=== PATIENT | female | born 1960 | race Caucasian/White ===

== ENCOUNTER 2019-08-08 16:51 | Observation (INO) | payer MEDICARE, BC, OTHER ==
[~2019-08-08] VITALS: Ht 160 cm; Wt 55.5 kg
[2019-08-08] MEDS ORDERED: LEVO88TA3 PO (17:21)
[2019-08-08] MEDS ORDERED: CIPR500T3 PO (17:21)
[2019-08-08] MEDS ORDERED: TOPA50TA8 PO (17:21)
[2019-08-08] MEDS ORDERED: ESTR3TA PO (17:21)
[2019-08-08] MEDS ORDERED: PHEN-501 PO (17:21)
[2019-08-08] MEDS ORDERED: RIZA10TA2 PO (17:51)
[2019-08-08] MEDS: NS 1,000 ML IV SCH (17:56)
[2019-08-08] MEDS ORDERED: ALL10TAB29 PO (17:57)
[2019-08-08] MEDS ORDERED: ONDANSETRON 4MG/2ML VIAL (J2405) IV ONE (18:00)
[2019-08-08] MEDS ORDERED: ACETAMINOPHEN TAB 650MG DOSE (2X325MG) PO PRN (22:30)
[2019-08-08] MEDS ORDERED: CETIRIZINE (ZyrTEC) 10 MG TAB PO PRN (22:30)
[2019-08-08] MEDS ORDERED: RIZATRIPTAN BENZOATE 10 MG TAB PO PRN (22:30)
--- NOTE | 2019-08-08 22:51 | HPEPDOC ---
General Date of Admission 08/08/2019 Date of Service: Aug 08, 2019 Attending Physician: PLACIDO HUYNH MD Chief Complaint The patient is a 59-year-old female admitted with a reason for visit of Kidney Stone. Source: Patient Exam Limitations: No limitations Timing/Duration: Week(s) Severity: Moderate Associated Symptoms: Nausea, Vomiting, Other (Back and abdominal pain) History of Present Illness Ms. Miller is a soft spoken pleasant 59 yo woman from [place] with a history of hypothyroidism on synthroid with a recently increased dose and a remote history of a presumed kidney stone approximately 10 years ago for an episode of acute severe back pain with proceeding episode of hematuria with resolution of the pain, who has been battling some abdominal pain and back pain from kidney stones over the last few weeks. She reports having gone to her PCP a few weeks ago with back and abdominal pain with associated nausea and emesis and had an ultrasound that showed a 3cm? stone. Due to scheduling difficulties her PCP ended up facilitating her to be seen by another provider after developing chills and was prescribed ciprofloxacin that she is currently taking. She was then referred to urology and had an appointment for 08/12/2019 but unfortunately over the last few days her pain her gradually worsened and this morning it was severe enough that her took her to [facility]. She describes her pain as having been 10/10 mostly affecting the left flank but at times band around her waist. At [facility], she arrived hemodynamically stable and afebrile and was given morphine 6mg IV x3, as well as supporting antiemetics with some relief. Initial studies at [facility] were notable for a CT A/P with contrast that revealed 6mm stone at the UPJ with mild left hydronephrosis, WBC of 10.36 with 88,% PMNs, Hgb 12.7, platelets 229, Cr 1.31 with otherwise normal electrolytes and LFTs. She had a UA that had 3+ blood and 2+ protein with negative nitrites and 6-10WBCs with a few bacteria however with a few epithelial cells as well. She also had normal CXR, EKG with NSR, negative troponin, lactate of 2 and lipase of 216. She was then transferred to [facility] for urological evaluation. In the [facility] ED, she was given zofran for nausea and is now being admitted to hospitalist with a consult to urology. Home Medications Scheduled Ciprofloxacin HCl (Ciprofloxacin HCl) 500 Mg Tablet, 500 MG PO BID, (Reported) STARTED 7 DAY COURSE ON 08/04 Conjugated Estrogens (Premarin) 0.3 Mg Tablet, 0.3 MG PO DAILY, (Reported) Levothyroxine Sodium (Levothyroxine Sodium) 88 Mcg Tablet, 88 MCG PO DAILY, (Reported) Topiramate (Topamax) 50 Mg Tablet, 50 MG PO TID, (Reported) Scheduled PRN Cetirizine HCl (Cetirizine HCl) 10 Mg Tablet, 10 MG PO DAILY PRN for ALLERGIES, (Reported) Rizatriptan Benzoate (Rizatriptan) 10 Mg Tablet, 10 MG PO DAILY PRN for MIGRAINE, (Reported) MAY REPEAT DOSE IN 2 HOURS IF SYMPTOMS PERSIST Allergies Coded Allergies: Sulfa (Sulfonamide Antibiotics) (Verified Adverse Reaction, Mild, BODY RASH, 08/08/19) amoxicillin (Verified Adverse Reaction, Mild, BODY RASH, 08/08/19) Past Medical History Medical History Hypothyroidism Remote history of presumed passed kidney stones History of herniated disk s/p back surgery History of palpitations - was evaluated by a material analyst who did not find clinical significant ectopy or arrythmia (per patient) Surgical History History of herniated disk s/p back surgery Social History * Smoker: Denies, non-smoker Alcohol: Denies Drugs: denies Recent Travel/Sick Contacts: Denies: Recent travel, Recent sick contacts Psychosocial History: No pertinent psych hx Lives in [place] with her A-FIB/CHADSVASC A-FIB History Current/History of A-Fib/PAF?: No Current PO Anticoag Therapy: No Age/Risk Factor Scoring CHADSVASC: CHADSVASC Response (Comments) Value Age Risk Factor Age < 65 years old 0 Gender Risk Factor Female 1 Hx of CHF No 0 Hx of HTN No 0 Hx of Stroke/TIA/or VTE No 0 Hx of Diabetes No 0 Hx of Vascular Disease No 0 Total 1 Treatment Treatment ordered: NONE Reason Anticoagulant not given: Not indicated/[id number] Review of Systems Constitutional: Denies: Chills, Fever, Night Sweats Eyes: Denies: Pain, Vision change ENT: Denies: Head Aches, Ear Pain, Dysphagia Skin: Denies: Rash, Lesions, Breakdown Pulmonary: Denies: Dyspnea, Cough Cardiovascular: Denies: Chest Pain, Palpitations, Orthopnea, Paroxysmal Noc. Dyspnea, Lt Headedness Gastrointestinal: Reports: Nausea, Vomiting, Abdominal Pain, Constipation, Other Symptoms (back pain L>R) Genitourinary: Denies: Dysuria, Frequency, Incontinence, Hematuria, Retention Hematologic: Denies: Bruising, Bleeding Excessively, Petecchia, Purpura, Enlarged Lymph Nodes Endocrine: Denies: Polydipsia, Polyphagia, Heat Intolerance, Cold Intolerance, Other Endocrine Sx Musculoskeletal: Denies: Neck Pain, Back Pain, Shoulder Pain, Arm Pain, Hand Pain, Leg Pain, Foot Pain, Joint Pain, Muscle Pain, Spasms Neurological: Denies: Weakness, Numbness, Incoordination, Change in speech, Confusion, Seizures Psych: Reports: Mood Normal; Denies: Anxiety, Depression, Memory Issues, Thoughts of Self Harm, Anger, Thoughts of Harming Other Physical Examination General Exam: Positive: Alert, Cooperative, Mild Distress Eye Exam: Positive: PERRLA, Conjunctiva & lids normal, EOMI ENT Exam: Positive: Atraumatic, Mucous membr. moist/pink, Pharynx Normal, Tongue Midline, Pharyngeal Edema, Nares Patent, Tympanic Membranes Normal, Ext Auditory Canal Nml, Pinna Normal, Other ENT Neck Exam: Positive: Supple, +2 carotid pulse wo bruit; Negative: JVD, thyromegaly, Lymphadenopathy Chest Exam: Positive: Clear to auscultation, Normal air movement, Other; Negative: Rales, Rhonchi, Wheezing, Diminished Heart Exam: Positive: Rate Normal, Regular Rhythm, Normal S1, Normal S2; Negative: Gallops, Murmurs, Rubs Abdomen Exam: Positive: Normal bowel sounds, Soft; Negative: Tenderness, Hepatospenomegaly, Mass, Hernia Extremity Exam: Positive: Normal pulses; Negative: Clubbing, Cyanosis, Edema, Tenderness, Swelling Skin Exam: Positive: Nl turgor and temperature, Other skin issue (central rednes around nose and center of face without a rash) Neuro Exam: Positive: Normal Speech, Strength at 5/5 X4 ext, Normal Tone, Sensation Intact, Cranial Nerves 3-12 NL, Reflexes 2+ Psych Exam: Positive: Mental status NL, Mood NL, Memory Intact, Oriented x 3 Vital Signs Vital Signs Date Time Temp Pulse Resp B/P (MAP) Pulse Ox O2 Delivery O2 Flow Rate FiO2 08/08/19 20:30 65 18 102/64 (77) 100 Room Air 08/08/19 17:26 97.9 Laboratory Data Labs 24H Laboratory Tests 2 08/08/19 17:26: POC Glucose (Misc Panel) 135H, POC Sodium (Misc Panel) 140, POC Potassium (Misc Panel) 3.8, POC Chloride (Misc Panel) 110H, POC Total CO2 (Misc Panel) 20.0L, POC Blood Urea Nitrogen (Misc Panel 23, POC Ionized Calcium (Misc Panel) 4.3L, POC Creatinine (Misc Panel) 0.8, POC Hematocrit (Misc Panel) 36.0L Assessment/Plan 59 yo W with a history of occipital neuralgia on topamax, hypothyroidism and presumed remote kidney stones who presents to [facility] via [facility] with painful nephrolithiasis of a few weeks currently without signs of an associated infection who is being admitted for management of nephrolithiasis with mild hydronephrosis. Nephrolithiasis with mild hydronephrosis: Her UA reported amorphous crystals likely calcium phosphate, possibly related to a high urine pH due to the carbonic anhydrase inhibitor topiramate that she takes for her headaches. Will consider Ca metabolism errors, RTAs, iatrogen induced and infection while consulting urology for management of ongoing stones. -urology consult -normal saline at 125cc/hr -tamsulosin 0.4mg -continue ciprofloxain course to completion -resent UA as the first one was not adequate given the epis -send uric acid, serum calcium, urine electrolytes first Hypothyroidism: -Continue synthroid Occipital neuralgia: -May continue the tryptan, but will hold the topamax for now and consider another agent. DVT prophylaxis: heparin 500Q8 subcutaneous Diet: regular Plan / VTE VTE Prophylaxis Ordered?: Yes Plan Disposition Needs urology evaluation and adequate pain control IVF: Initiate Diet: Continue Current Activity: Continue Current Diagnostics: Check Labs Anticipated Discharge: Home PLACIDO HUYNH MD Aug 08, 2019 22:26
[2019-08-08 23:40] VITALS: BP 105/62
[2019-08-09] MEDS: CIPROFLOXACIN 500 MG TAB PO SCH ×3 (01:43→17:05)
[2019-08-09] MEDS: NS 1,000 ML IV SCH ×2 (03:31→15:15)
[2019-08-09 06:00] VITALS: BP 105/61
[2019-08-09] MEDS: HEPARIN SOD (PORCINE) 5000 UNITS/ML VIAL SC SCH ×2 (06:12→15:14)
[2019-08-09 06:38] LABS: APPEARANCE, URINE CLEAR (CLEAR); BACTERIA, URINE AUTO 1+ (NEGATIVE); BILIRUBIN, URINE AUTO NEGATIVE (NEGATIVE); BLOOD, URINE BLOOD 1+ (NEGATIVE); COLOR, URINE YELLOW (YELLOW); GLUCOSE, URINE (UA) AUTO NEGATIVE (NEGATIVE); KETONE, URINE AUTO 1+ mg/dL (NEGATIVE); LEUKOCYTE ESTERASE, URINE AUTO NEGATIVE (NEGATIVE); MUCUS, URINE SMALL (NEGATIVE); NITRITE, URINE AUTO NEGATIVE (NEGATIVE); PROTEIN, URINE AUTO NEGATIVE (NEGATIVE); RBC, URINE AUTO 10 /HPF (0-3); SPECIFIC GRAVITY URINE AUTO 1.012 (1.002-1.035); SQUAMOUS EPITHELIAL CELL UR AU 1 /HPF (0-6); UROBILINOGEN, URINE AUTO 0.2 mg/dL (0.0-2.0); WBC, URINE AUTO 2 /HPF (0-3)
[2019-08-09 07:26] LABS: HEMATOCRIT 36.3 % (36.0-47.0); HEMOGLOBIN 11.5 g/dl (12.0-15.5); MEAN CORPUSCULAR HEMOGLOBIN 28.9 pg (27.0-33.0); MEAN CORPUSCULAR HGB CONC 31.7 g/dl (32.0-36.5); MEAN CORPUSCULAR VOLUME 91.2 fl (80.0-96.0); PLATELET COUNT, AUTOMATED 186 10^3/uL (150-450); RED BLOOD COUNT 3.98 10^6/uL (4.00-5.40); WHITE BLOOD COUNT 8.1 10^3/uL (4.0-10.0)
--- NOTE | 2019-08-09 07:36 | IPNPDOC ---
Subjective Review oF Systems Chief Complaint The patient is a 59-year-old female admitted with a reason for visit of Hydronephrosis With Renal And Ureteral Calculas Ob. Events since Last Encounter Please see dictated urology consultation note. The patient has been made aware of the available options for management and is considering these. They are observation with hopeful spontaneous passage of the calculus taking tamsulosin a nd analgesics prn OR proceeding with cystoscopy and placement of a left internal ureteral catheter to eliminate obstruction and pain with subsequent ESWL. I explained the technique of both procedures. Objective Physical Examination General Exam: Alert, Cooperative, No Acute Distress Heart Exam: Positive: Rate Normal, Regular Rhythm, Normal S1, Normal S2; Negative: Gallops, Murmurs, Rubs Vital Signs/I&O Vital Signs Date Time Temp Pulse Resp B/P (MAP) Pulse Ox O2 Delivery O2 Flow Rate FiO2 08/09/19 06:00 97.6 84 18 105/61 (76) 99 08/08/19 20:30 Room Air I&O- Last 24 Hours up to 6 AM 08/09/19 05:59 Intake Total 250 ml Output Total 400 ml Balance -150 ml Laboratory Data Labs 24H Laboratory Tests 2 08/08/19 17:26: POC Glucose (Misc Panel) 135H, POC Sodium (Misc Panel) 140, POC Potassium (Misc Panel) 3.8, POC Chloride (Misc Panel) 110H, POC Total CO2 (Misc Panel) 20.0L, POC Blood Urea Nitrogen (Misc Panel 23, POC Ionized Calcium (Misc Panel) 4.3L, POC Creatinine (Misc Panel) 0.8, POC Hematocrit (Misc Panel) 36.0L 08/09/19 06:22: Urine Appearance CLEAR, Urine Color YELLOW, Urine pH 6.0, Urine Specific [place] 1.012, Urine Protein NEGATIVE, Urine Glucose (UA) NEGATIVE, Urine Ketones 1+H, Urine Urobilinogen 0.2, Urine Bilirubin NEGATIVE, Urine Leukocyte Esterase NEGATIVE, Urine Blood 1+H, Urine Nitrite NEGATIVE, Urine WBC (Auto) 2, Urine RBC (Auto) 10H, Urine Hyaline Casts (Auto) 0, Urine Bacteria (Auto) 1+H, Urine Squamous Epithelial Cells 1, Urine Mucus (Auto) SMALL, Urine Sperm (Auto) 08/09/19 06:45: Nucleated Red Blood Cells % (auto) 0.0 CBC/BMP Laboratory Tests 08/09/19 06:45 Red Blood Count 3.98 L, Mean Corpuscular Volume 91.2, Mean Corpuscular Hemoglobin 28.9, Mean Corpuscular Hemoglobin Concent 31.7 L, Red Cell Distribution Width 12.7 Assessment/Plan Date Seen The patient was seen on 08/09/19. Plan/VTE VTE Prophylaxis Ordered?: Yes Plan Will await the patient's decision regarding these options IVF: Initiate Diet: Continue Current Activity: Continue Current Diagnostics: Check Labs Anticipated Discharge: Home ROSE ABREU MD Aug 09, 2019 07:36
[2019-08-09 07:46] LABS: ALBUMIN 2.7 GM/DL (3.2-5.2); ALT/SGPT 357 U/L (12-78); BILIRUBIN,TOTAL 0.9 MG/DL (0.2-1.0); BLOOD UREA NITROGEN 14 MG/DL (7-18); CALCIUM LEVEL 7.5 MG/DL (8.5-10.1); CARBON DIOXIDE LEVEL 22 MEQ/L (21-32); CHLORIDE LEVEL 113 MEQ/L (98-107); CREATININE FOR GFR 0.71 MG/DL (0.55-1.30); GLOMERULAR FILTRATION RATE > 60.0 (>51); GLUCOSE, FASTING 79 MG/DL (70-100); POTASSIUM SERUM 3.6 MEQ/L (3.5-5.1); SODIUM LEVEL 143 MEQ/L (136-145); TOTAL PROTEIN 5.4 GM/DL (6.4-8.2); URIC ACID 3.2 MG/DL (2.6-6.0)
[2019-08-09] MEDS ORDERED: LEVOTHYROXINE 88MCG TABLET (0.088 MG) PO SCH (09:00)
[2019-08-09] MEDS: TOPIRAMATE (TopAMAX) 25 MG TAB PO SCH ×4 (09:00→15:35)
[2019-08-09] MEDS ORDERED: TAMSULOSIN 0.4 MG CAP PO SCH (09:00)
[2019-08-09] MEDS ORDERED: ONDANSETRON 4MG/2ML VIAL (J2405) IV ONE (09:15)
--- NOTE | 2019-08-09 10:40 | IPNPDOC ---
Text Note Date of Service The patient was seen on 08/09/19. NOTE Subjective: No pain this morning. Nauseous however, requesting zofran. Had a discussion with Dr. Brown (urology) about management of her stone and hydro and she is thinking about the options and yet to make a decision. ROS: Pertinent negatives: No fever, chills, hematuria, worsening abdominal and pain, shortness of breath, dysuria. The rest of the 12 point review of systems was completed and was negative Objective: Vitals: Please see below General Exam: Alert, Cooperative,No distress Eye Exam: PERRLA, Conjunctiva & lids normal, EOMI ENT Exam: Atraumatic, MMM Neck Exam: supple , no JVD, thyromegaly or palpable adenopathy Chest Exam: Clear to auscultation, no Rales, Rhonchi or Wheezing Heart Exam: Rate Normal, Regular Rhythm, Normal S1, Normal S2, no Gallops, Murmurs or Rubs Abdomen Exam: Normal bowel sounds, Soft, nontender abdomen and no flank pain this morning Extremity Exam: Normal pulses, no Edema, Tenderness or Swelling Skin Exam: Normal turgor and temperature Neuro Exam: Normal Speech, normal gait, Cranial Nerves 3-12 within normal limits Psych Exam: Oriented x 3, normal affect Labs: see below Imaging and prior studies: none done here at [facility]. Had CT A/P with contrast at [facility] that revealed 6mm stone at the UPJ with mild left hydronephrosis, WBC of 10.36 with 88,% PMNs, Hgb 12.7, platelets 229, Cr 1.31 with otherwise normal electrolytes and LFTs. She had a UA that had 3+ blood and 2+ protein with negative nitrites and 6-10WBCs with a few bacteria however with a few epithelial cells as well. She also had normal CXR, EKG with NSR, negative troponin, lactate of 2 and lipase of 216. Assessment: 59 yo W with a history of occipital neuralgia on topamax, hypothyroidism and presumed remote kidney stones who presented to [facility] via [facility] with painful nephrolithiasis of a few weeks currently without signs of an associated infection while on cipro, admitted for management of nephrolithiasis with mild left hydronephrosis. Plan: Nephrolithiasis with mild hydronephrosis: -urology consulted, appreciate recs --> discussed available options for management and patient is considering either observation with hopeful spontaneo us passage of the calculus taking tamsulosin and analgesics prn as she is right now OR proceeding with cystoscopy and placement of a left internal ureteral catheter to eliminate obstruction and pain with subsequent ESWL. -normal saline at 125cc/hr -continue tamsulosin 0.4mg -continue ciprofloxacin course to completion -repeat UA was negative for infection, pH was normal -serum Ca and ionized Ca were both low, so will not check PTH -check 24h urine calcium to r/o hypocalcemic hypercalciuria Hypothyroidism: -Continue synthroid Occipital neuralgia: -May continue the tryptan, but will hold the topamax for now and consider another agent. DVT prophylaxis: heparin 500Q8 subcutaneous Diet: regular Dispo: pending stone and hydro management decision with urology. VS,Fishbone, I+O VS, Fishbone, I+O Laboratory Tests 08/09/19 06:45 Red Blood Count 3.98 L, Mean Corpuscular Volume 91.2, Mean Corpuscular Hemoglobin 28.9, Mean Corpuscular Hemoglobin Concent 31.7 L, Red Cell Distribution Width 12.7, Calcium Level 7.5 L, Aspartate Amino Transf (AST/SGOT) 256 H, Alanine Aminotransferase (ALT/SGPT) 357 H, Alkaline Phosphatase 87, Total Bilirubin 0.9, Uric Acid 3.2, Total Protein 5.4 L, Albumin 2.7 L Vital Signs Date Time Temp Pulse Resp B/P (MAP) Pulse Ox O2 Delivery O2 Flow Rate FiO2 08/09/19 06:00 97.6 84 18 105/61 (76) 99 08/08/19 20:30 Room Air I&O- Last 24 Hours up to 6 AM 08/09/19 06:00 Intake Total 250 ml Output Total 400 ml Balance -150 ml PLACIDO HUYNH MD Aug 09, 2019 10:40
--- NOTE | 2019-08-09 11:04 | IPNPDOC ---
Subjective Review oF Systems Chief Complaint The patient is a 59-year-old female admitted with a reason for visit of Hydronephrosis With Renal And Ureteral Calculas Ob. Objective Physical Examination General Exam: Alert, Cooperative, No Acute Distress Heart Exam: Positive: Rate Normal, Regular Rhythm, Normal S1, Normal S2; Negative: Gallops, Murmurs, Rubs Vital Signs/I&O Vital Signs Date Time Temp Pulse Resp B/P (MAP) Pulse Ox O2 Delivery O2 Flow Rate FiO2 08/09/19 06:00 97.6 84 18 105/61 (76) 99 08/08/19 20:30 Room Air I&O- Last 24 Hours up to 6 AM 08/09/19 06:00 Intake Total 250 ml Output Total 400 ml Balance -150 ml Laboratory Data Labs 24H Laboratory Tests 2 08/08/19 17:26: POC Glucose (Misc Panel) 135H, POC Sodium (Misc Panel) 140, POC Potassium (Misc Panel) 3.8, POC Chloride (Misc Panel) 110H, POC Total CO2 (Misc Panel) 20.0L, POC Blood Urea Nitrogen (Misc Panel 23, POC Ionized Calcium (Misc Panel) 4.3L, POC Creatinine (Misc Panel) 0.8, POC Hematocrit (Misc Panel) 36.0L 08/09/19 06:22: Urine Appearance CLEAR, Urine Color YELLOW, Urine pH 6.0, Urine Specific [place] 1.012, Urine Protein NEGATIVE, Urine Glucose (UA) NEGATIVE, Urine Ketones 1+H, Urine Urobilinogen 0.2, Urine Bilirubin NEGATIVE, Urine Leukocyte Esterase NEGATIVE, Urine Blood 1+H, Urine Nitrite NEGATIVE, Urine WBC (Auto) 2, Urine RBC (Auto) 10H, Urine Hyaline Casts (Auto) 0, Urine Bacteria (Auto) 1+H, Urine Squamous Epithelial Cells 1, Urine Mucus (Auto) SMALL, Urine Sperm (Auto) 08/09/19 06:45: Nucleated Red Blood Cells % (auto) 0.0, Anion Gap 8, Glomerular Filtration Rate > 60.0, Blood Urea Nitrogen 14, Creatinine 0.71, Sodium Level 143, Potassium Level 3.6, Chloride Level 113H, Carbon Dioxide Level 22, Calcium Level 7.5L, Aspartate Amino Transf (AST/SGOT) 256H, Alanine Aminotransferase (ALT/SGPT) 357H, Alkaline Phosphatase 87, Total Bilirubin 0.9, Uric Acid 3.2, Total Protein 5.4L, Albumin 2.7L, Albumin/Globulin Ratio 1.00 CBC/BMP Laboratory Tests 08/09/19 06:45 Red Blood Count 3.98 L, Mean Corpuscular Volume 91.2, Mean Corpuscular Hemoglobin 28.9, Mean Corpuscular Hemoglobin Concent 31.7 L, Red Cell Distribution Width 12.7, Calcium Level 7.5 L, Aspartate Amino Transf (AST/SGOT) 256 H, Alanine Aminotransferase (ALT/SGPT) 357 H, Alkaline Phosphatase 87, Total Bilirubin 0.9, Uric Acid 3.2, Total Protein 5.4 L, Albumin 2.7 L Assessment/Plan Date Seen The patient was seen on 08/09/19. Patient Summary The patient has discussed her situation with her and has decided that she would like to proceed with cystoscopy and placement of left internal ureteral catheter to eliminate her pain. I explained that this procedure will eliminate the obstruction caused by the kidney stone but not remove the stone. It will need to be treated later with outpatient ESWL. I explained the technique of the procedure, the benefits, risks, alternatives and possible adverse effects. Informed consent obtained. Will proceed today in the OR. Problems (1) Left ureteral calculus Plan/VTE VTE Prophylaxis Ordered?: Yes Plan IVF: Initiate Diet: Continue Current Activity: Continue Current Diagnostics: Check Labs Anticipated Discharge: Home ROSE ABREU MD Aug 09, 2019 11:04
[2019-08-09] MEDS ORDERED: CONRAY-60 60% 50ML VIAL (Q9961) As Ordered ONE (12:46)
[2019-08-09] MEDS ORDERED: fentaNYL 100 MCG/2 ML INJECTION (J3010) As Ordered ONE (13:19)
[2019-08-09] MEDS ORDERED: PHENYLephrine HCL 500 MCG/5 ML (100MCG/ML) SYRINGE (J2370) As Ordered ONE (13:19)
[2019-08-09] MEDS ORDERED: LIDOCAINE 2% INJ 100 MG/5 ML SDV (FOR ANES.) As Ordered ONE (13:19)
[2019-08-09] MEDS ORDERED: ONDANSETRON 4MG/2ML VIAL (J2405) As Ordered ONE (13:19)
[2019-08-09] MEDS ORDERED: dexameTHASONE 4 MG/ML 1ML VIAL (J1100) As Ordered ONE (13:19)
[2019-08-09] MEDS ORDERED: PROPOFOL 200 MG/20 ML VIAL As Ordered ONE (13:19)
[2019-08-09] MEDS ORDERED: LR 1,000 ML IV SCH (13:45)
[2019-08-09] MEDS ORDERED: ONDANSETRON 4MG/2ML VIAL (J2405) IV PRN (13:45)
[2019-08-09] MEDS ORDERED: fentaNYL 100 MCG/2 ML INJECTION (J3010) IV PRN (13:45)
[2019-08-09] MEDS ORDERED: PERCOCET 5MG/325MG TAB PO PRN (13:45)
--- NOTE | 2019-08-09 14:08 | REP ---
16 seconds of fluoroscopy was provided [place] during stent placement. The single available frame to review shows no discernable image. Electronically Signed by Juan M Thakur DO 08/09/2019 03:20 P
[2019-08-09 14:15] VITALS: BP 120/62
[2019-08-09 14:45] VITALS: BP 116/63
[2019-08-09 15:15] VITALS: BP 116/65
[2019-08-09 16:15] VITALS: BP 118/65
[2019-08-09] MEDS ORDERED: oxyCODONE 5MG TAB PO PRN (16:30)
[2019-08-09] MEDS ORDERED: OXYCO5TA PO ×2 (17:19→18:19)
--- NOTE | 2019-08-09 17:25 | DS.PDOC ---
Discharge Summary General Date of Admission Aug 08, 2019 at 16:52 Date of Discharge 08/09/2019 Attending Physician: PLACIDO HUYNH MD Specialist/Consultants Involve: ROSE ABREU MD Discharge Summary PROCEDURES PERFORMED DURING STAY: [None]. ADMITTING DIAGNOSES: 1. Ureteral calculus with left hydronephrosis DISCHARGE DIAGNOSES: 1. Ureteral calculus with left hydronephrosis 2. Occipital neuralgia 3. Hypothyroidism COMPLICATIONS/CHIEF COMPLAINT: Hydronephrosis With Renal And Ureteral Calculas Ob. HISTORY OF PRESENT ILLNESS: Ms. Miller is a pleasant 59 yo woman from [place] with a history of hypothyroidism on synthroid, occipital neuralgia on topamax + tryptan and a remote history of a presumed kidney stone approximately 10 years ago for an episode of acute severe back pain with proceeding episode of hematuria with resolution of the pain, who has been battling some abdominal pain and back pain from kidney stones over the last few weeks. She reports having gone to her PCP a few weeks ago with back and abdominal pain with associated nausea and emesis and had an ultrasound that showed a 3cm? stone. Due to scheduling difficulties her PCP ended up facilitating her to be seen by another provider after dev eloping chills and was prescribed ciprofloxacin that she is currently taking. She was then referred to urology and had an appointment for 08/12/2019 but unfortunately over the last few days her pain gradually worsened and on the morning of presentation it was severe enough she went to [facility] for evaluation. HOSPITAL COURSE: At [facility], she arrived hemodynamically stable and afebrile and was given morphine 6mg IV three times, as well as supporting antiemetics with some relief. Initial studies at [facility] were notable for a CT A/P with contrast that revealed 6mm stone at the UPJ with mild left hydronephrosis, WBC of 10.36 with 88,% PMNs, Hgb 12.7, platelets 229, Cr 1.31 with otherwise normal electrolytes and LFTs. She had a UA that had 3+ blood and 2+ protein with negative nitrites and 6-10WBCs with a few bacteria however with a few epithelial cells as well. She also had normal CXR, EKG with NSR, negative troponin, lactate of 2 and lipase of 216. She was then transferred to [facility] for urological evaluation. In the [facility] ED, she was given zofran for nausea and was admitted to the hospitalist team and urology was consulted. On the morning of 08/09 she was seen by Dr. Abreu (Urology) and the decision was made to proceed with cystoscopy and placement of a left internal ureteral catheter to eliminate her pain and the obstruction caused by the kidney stone with the knowledge that this would not remove the stone. The removal of the stone would be set for a later time as an outpatient by extracorporeal shock wave lithotripsy. She underwent the procedure without complication and soon after had some moderate discomfort that was treated with oxycodone 5mg as needed every 6 hours. She is now being discharged home to follow up with her primary care doctor and Dr. Abreu. Her course by issue is outlined below: 1. Ureteral calculus with mild hydronephrosis: Her [facility] urinalysis reported amorphous crystals and given the history of prior stones warrants a predisposition work up. As a truncated differential while inpatient I considered Ca metabolism errors, iatrogenic urine acidifiers precipitating an RTA of which topamax is a possible culprit and infection while consulting urology for management of ongoing stone. Her serum calcium and ionized calcium were borderline low eliminating the possibility of hypercalcemia precipitating her stone formation. Her urinalysis did not have evidence of an active infection, however she was on ciprofloxacin as an outpatient. Her urine pH was also normal. She would likely benefit from a 24 hour urine collection for urine calcium and check for a hypocalcemia hypercalciuric state that could managed and prevent further stone formation. For the ongoing stones: -She was treated with IV fluids and tamsulosin 0.4mg -We continued her on the ciprofloxacin to complete her course -She had a repeat UA that was negative for infection, and had a normal pH -she had cystoscopy and placement of a left internal ureteral catheter to eliminate her pain and the obstruction caused by the kidney stone and will have lithotripsy as an oupatient per urology follow up -After the procedure, I will send her home with oxy 5mg Q6H PRN for 5 days until she can be seen in the office. Hypothyroidism: -We continued her synthroid Occipital neuralgia: -continued her topamax (no evidence of RTA on labs) and tryptan DISCHARGE MEDICATIONS: Please see below. ALLERGIES: Please see below. PHYSICAL EXAMINATION ON DISCHARGE: General Exam: Alert, Cooperative, No distress HEENT: PERRLA EOMI, MMM Neck Exam: supple , no thyromegaly or palpable adenopathy Chest Exam: Clear to auscultation, no crackles or wheezing Heart Exam: RRR, no mrg Abdomen Exam: Normal bowel sounds, soft, nontender abdomen and no flank pain this morning Extremity Exam: Normal pulses, no edema, tenderness or swelling Neuro Exam: Normal speech, normal gait, cranial nerves intact Psych Exam: Oriented x 3, normal affect LABORATORY DATA: Please see below. IMAGING: None at [facility], CT A/P was done at [facility] PROGNOSIS: Good ACTIVITY: As tolerated DIET: Regular DISCHARGE PLAN: Home with close PCP and urology follow up, and to complete ciprofloxacin course as originally prescribed DISPOSITION: Home DISCHARGE INSTRUCTIONS: 1. Please make an appointment with your PCP to be seen in the next one week and urology follow up in the next 2 weeks. Please complete ciprofloxacin course as originally prescribed. ITEMS TO FOLLOWUP ON ON OUTPATIENT: 1. Ureteral calculus with left hydronephrosis s/p stent pending lithotripsy 2. PCP follow for predisposition work up DISCHARGE CONDITION: Stable TIME SPENT ON DISCHARGE: Greater than 40 minutes. Vital Signs/I&Os Vital Signs Date Time Temp Pulse Resp B/P (MAP) Pulse Ox O2 Delivery O2 Flow Rate FiO2 08/09/19 15:15 98.2 78 16 116/65 (82) 99 08/08/19 20:30 Room Air I&O- Last 24 Hours up to 6 AM 08/09/19 06:00 Intake Total 250 ml Output Total 400 ml Balance -150 ml Laboratory Data Labs 24H Laboratory Tests 2 08/08/19 17:26: POC Glucose (Misc Panel) 135H, POC Sodium (Misc Panel) 140, POC Potassium (Misc Panel) 3.8, POC Chloride (Misc Panel) 110H, POC Total CO2 (Misc Panel) 20.0L, POC Blood Urea Nitrogen (Misc Panel 23, POC Ionized Calcium (Misc Panel) 4.3L, POC Creatinine (Misc Panel) 0.8, POC Hematocrit (Misc Panel) 36.0L 08/09/19 06:22: Urine Appearance CLEAR, Urine Color YELLOW, Urine pH 6.0, Urine Specific [place] 1.012, Urine Protein NEGATIVE, Urine Glucose (UA) NEGATIVE, Urine Ketones 1+H, Urine Urobilinogen 0.2, Urine Bilirubin NEGATIVE, Urine Leukocyte Esterase NEGATIVE, Urine Blood 1+H, Urine Nitrite NEGATIVE, Urine WBC (Auto) 2, Urine RBC (Auto) 10H, Urine Hyaline Casts (Auto) 0, Urine Bacteria (Auto) 1+H, Urine Squamous Epithelial Cells 1, Urine Mucus (Auto) SMALL, Urine Sperm (Auto) 08/09/19 06:45: Nucleated Red Blood Cells % (auto) 0.0, Anion Gap 8, Glomerular Filtration Rate > 60.0, Blood Urea Nitrogen 14, Creatinine 0.71, Sodium Level 143, Potassium Level 3.6, Chloride Level 113H, Carbon Dioxide Level 22, Calcium Level 7.5L, Aspartate Amino Transf (AST/SGOT) 256H, Alanine Aminotransferase (ALT/SGPT) 357H, Alkaline Phosphatase 87, Total Bilirubin 0.9, Uric Acid 3.2, Total Protein 5.4L, Albumin 2.7L, Albumin/Globulin Ratio 1.00 CBC/BMP Laboratory Tests 08/09/19 06:45 Red Blood Count 3.98 L, Mean Corpuscular Volume 91.2, Mean Corpuscular Hemoglobin 28.9, Mean Corpuscular Hemoglobin Concent 31.7 L, Red Cell Distribution Width 12.7, Calcium Level 7.5 L, Aspartate Amino Transf (AST/SGOT) 256 H, Alanine Aminotransferase (ALT/SGPT) 357 H, Alkaline Phosphatase 87, Total Bilirubin 0.9, Uric Acid 3.2, Total Protein 5.4 L, Albumin 2.7 L Discharge Medications Scheduled Ciprofloxacin HCl (Ciprofloxacin HCl) 500 Mg Tablet, 500 MG PO BID, (Reported) STARTED 7 DAY COURSE ON 08/04 Conjugated Estrogens (Premarin) 0.3 Mg Tablet, 0.3 MG PO DAILY, (Reported) Levothyroxine Sodium (Levothyroxine Sodium) 88 Mcg Tablet, 88 MCG PO DAILY, (Reported) Topiramate (Topamax) 50 Mg Tablet, 50 MG PO TID, (Reported) Scheduled PRN Cetirizine HCl (Cetirizine HCl) 10 Mg Tablet, 10 MG PO DAILY PRN for ALLERGIES, (Reported) Oxycodone HCl (Oxycodone HCl) 5 Mg Tablet, 5 MG PO Q6HP PRN for PAIN Rizatriptan Benzoate (Rizatriptan) 10 Mg Tablet, 10 MG PO DAILY PRN for MIGR KAMLESH, (Reported) MAY REPEAT DOSE IN 2 HOURS IF SYMPTOMS PERSIST Allergies Coded Allergies: Sulfa (Sulfonamide Antibiotics) (Verified Adverse Reaction, Mild, BODY RASH, 08/08/19) amoxicillin (Verified Adverse Reaction, Mild, BODY RASH, 08/08/19) PLACIDO HUYNH MD Aug 09, 2019 17:15
[2019-08-09 17:33] VITALS: BP 123/62
[2019-08-10] MEDS ORDERED: LEVOTHYROXINE 88MCG TABLET (0.088 MG) PO SCH (06:00)
--- NOTE | 2019-08-11 16:19 | CR ---
DATE OF CONSULTATION: 08/09/2019 CONCLUSIONS: 1. 6 mm left ureteropelvic junction calculus with recent severe ureteral colic. RECOMMENDATIONS: 1. I discussed the situation with the patient and the options of medical management, including either observation with hopeful spontaneous passage or proceeding with cystoscopy and placement of a left internal ureteral catheter to alleviate obstruction and palliate her symptoms until lithotripsy can be carried out. The patient is uncertain as to which avenue she wishes to proceed with. She is going to give this some thought and discuss this with her . DISCUSSION: The patient is a healthy 59-year-old female who about 2 weeks developed left sided flank pain. She was seen by her primary care physician and ultrasound did show evidence of ureteral calculus. She was placed on antibiotics and observed. Yesterday, her pain became more severe. She had nausea and vomiting. She has had no fever. She was seen in [facility] emergency room and transferred to this facility for management. A CT scan by report showed a 6 mm calculus at the left ureteropelvic junction with mild left hydronephrosis. I do not have these images to review. The patient presently is comfortable. There is a questionable history of possible passage of a kidney stone, which was never documented several years ago. She has been on antibiotics. It is unclear as to whether the diagnosis of urinary tract infection (UTI) was made. PAST MEDICAL HISTORY: 1. Hypothyroidism. 2. Headaches. ROUTINE MEDICATIONS: - Premarin - thyroid replacement - Topamax PREVIOUS HOSPITALIZATION/OPERATIONS: Hysterectomy, sinus surgery and cholecystectomy. PHYSICAL EXAMINATION: Alert, pleasant, cooperative female sitting up in bed. No distress. HEENT: Unremarkable. NECK: Supple without adenopathy or bruits. CHEST: Clear bilaterally to auscultation. BACK: No costovertebral angle tenderness on either side. ABDOMEN: Soft, nontender. No palpable organomegaly or masses present. EXTREMITIES: Without cyanosis, clubbing or deformity. NEUROLOGIC: Intact. SKIN: Without lesions.
--- NOTE | 2019-08-12 07:25 | RO ---
DATE OF PROCEDURE: 08/09/2019 PREOPERATIVE DIAGNOSIS: 6 mm left ureteral pelvic junction calculus with obstruction and persistent pain. POSTOPERATIVE DIAGNOSIS: 6 mm left ureteral pelvic junction calculus with obstruction and persistent pain. PROCEDURE: Cystourethroscopy, placement of left internal ureteral catheter. SURGEON: Dr. Brown. ANESTHESIA: General, LMA. COMPLICATIONS: None. DRAINS: Variable length x 6-Albanian left internal ureteral catheter. SPECIMEN: None. COMPLICATIONS: None. HISTORY: The patient is a 59-year-old female who presents with 2 week history of intermittent left flank pain that became more severe on the day prior to this procedure. She had severe unrelenting pain and required transfer from an outlying hospital to this facility. CT imaging demonstrated a left ureteral pelvic junction calculus which was 6 mm in diameter. The options available for management were reviewed with the patient and the decision was made to pursue with cystoscopy and placement of a left internal ureteral catheter to alleviate her symptoms. It was explained to her that a secondary procedure with ESWO would ne necessary in te future. The benefits, risks, alternatives, nature of the procedure and possible adverse effects were carefully discussed with the patient and informed consent was obtained. PROCEDURE: The patient was placed in the dorsal lithotomy position on the operating table. The patient was prepped and draped in the sterile manner. The #22-Albanian cystoscope sheath could not be introduced in the urethra because of ureteral stenosis. Te urethra was dilated to #24-Albanian using a dilator. The scope was then reinserted and the left ureteral orifice was identified and a 5-Albanian open end ureteral catheter was used to advance the sensory guidewire into the left renal collecting system. This was noted to displace the calculus from the region of the UPJ into the renal pelvis. Over this guidewire after removing the 5-Albanian open end catheter at variable length x 6-Albanian double pig-tail internal ureteral catheter was placed with the proximal end coiled in the renal pelvis. The distal end coiled in the bladder. The bladder was then evacuated and the cytosope was withdrawn. The patient was awaken and transported to the recovery room in satisfactory condition and tolerated the procedure well. The patient's family was made aware of the findings and the patient's disposition.
== END 2019-08-09 18:25 | disposition home or self-care (01) ==
LOC: M ED 16:51 → M ED INP 16:52 → M MS4PR 23:40
PROVIDERS: ADMIT Internal Medicine; ATTEND Internal Medicine
DX: N13.2 Hydronephrosis with renal and ureteral calculous obstruction (principal); M54.81 Occipital neuralgia; E03.9 Hypothyroidism, unspecified; Z79.899 Other long term (current) drug therapy; Z88.0 Allergy status to penicillin; Z88.2 Allergy status to sulfonamides
CPT/HCPCS: 52332; 74420; 80047; 80053; 81001; 84550; 85027; 96372; 96374; 96376; 99285; C1769; C2617; G0378; J1100; J2370; J2405; J3010; Q9961

== ENCOUNTER 2019-08-21 07:25 | Day surgery (SDC) | payer MEDICARE, BC, OTHER ==
[~2019-08-21] VITALS: Ht 160 cm; Wt 53.1 kg
[~2019-08-21 07:25] MED LIST: ALL10TAB29 PO; CIPR500T3 PO; CIPROFLOXACIN 400 MG in IV 1 EA IV ONE; COLA100C5 PO; ESTR3TA PO; IBUP-1114 PO; LEVO88TA3 PO; LR 1,000 ML IV ONE; OXYCO5TA PO; PHEN-501 PO; RIZA10TA2 PO; TOPA50TA8 PO
--- NOTE | 2019-08-21 08:19 | REP ---
KUB: Single view. History: Preop. Findings: There are clips in right upper quadrant of the abdomen and there is a clip in the mid pelvis. A double pigtail left ureteral stent is noted in place. There are calcific opacity adjacent to the proximal loop of the stent along the left psoas margin which measures 7 mm in diameter. This consistent with an intrarenal calculus. Bowel gas pattern is unremarkable. Impression: Left ureteral stent in place. 7 mm calcific opacity adjacent to the proximal lobe consistent with a intrarenal calculus. Electronically Signed by Ankur Lewis MD 08/21/2019 08:11 A
[2019-08-21] MEDS ORDERED: propofoL 200 MG/20 ML VIAL As Ordered ONE (10:33)
[2019-08-21] MEDS ORDERED: ONDANSETRON 4MG/2ML VIAL (J2405) As Ordered ONE (10:33)
[2019-08-21] MEDS ORDERED: MIDAZOLAM INJ 2 MG/2 ML VIAL (J2250) As Ordered ONE (10:33)
[2019-08-21] MEDS ORDERED: LIDOCAINE 2% INJ 100 MG/5 ML SDV (FOR ANES.) As Ordered ONE (10:33)
[2019-08-21] MEDS ORDERED: dexameTHASONE 4 MG/ML 1ML VIAL (J1100) As Ordered ONE (10:33)
[2019-08-21] MEDS ORDERED: fentaNYL 100 MCG/2 ML INJECTION (J3010) As Ordered ONE (10:33)
--- NOTE | 2019-08-21 15:11 | RO ---
DATE OF SURGICAL PROCEDURE: 08/21/2019 PREOPERATIVE DIAGNOSIS: 6 mm left ureteropelvic junction stone with a ureteral stent in place. POSTOPERATIVE DIAGNOSIS: 6 mm left ureteropelvic junction stone with a ureteral stent in place. PROCEDURE: Left extracorporeal shock wave lithotripsy. SURGEON: Dr. Iza Park [employer]: ANESTHESIA: Monitored anesthesia care (MAC). INDICATIONS FOR PROCEDURE: The patient is a 59-year-old female who came in with left flank pain on 08/09/[address] Brown placed a left ureteral stent after findings of a 6 mm left ureteropelvic junction stone. The patient then decided to proceed with extracorporeal shock wave lithotripsy (ESWL) for more definitive management of the stone. Informed consent was obtained in both verbal and written form. PROCEDURE: The patient was brought into the operating room and anesthesia was induced. The stone was then visualized using fluoroscopy and she received a total current 500 shock waves with a total power level of 20. She tolerated the procedure well and was returned to the recovery room in stable condition.
== END 2019-08-21 12:30 | disposition home or self-care (01) ==
LOC: M SDC 07:25
PROVIDERS: ATTEND Specialist
DX: N20.0 Calculus of kidney (principal); N20.1 Calculus of ureter; E03.9 Hypothyroidism, unspecified; K21.9 Gastro-esophageal reflux disease without esophagitis; G43.909 Migraine, unspecified, not intractable, without status migrainosus; Z88.2 Allergy status to sulfonamides; Z88.0 Allergy status to penicillin; Z79.899 Other long term (current) drug therapy
CPT/HCPCS: 50590; 74018; J0744; J1100; J2250; J2405; J3010

== ENCOUNTER → 2019-09-01 | Outpatient (CLI) | payer MEDICARE, BC, OTHER ==
[~2019-09-01] MED LIST changes: -CIPROFLOXACIN 400 MG in IV 1 EA IV ONE; -LR 1,000 ML IV ONE
--- NOTE | 2019-09-01 14:55 | REP ---
KUB: Single view. History: Kidney stone. Comparison study: August 21, 2019. Findings: A double pigtail left ureteral stent is noted in place. There are surgical clips in right upper quadrant and left central pelvis. Bowel gas pattern is normal. There is a small calcific density adjacent to the proximal portion of the stent consistent with an upper ureteral calcific remnant, 0.4 cm in craniocaudal span. No other ureteral calculus is appreciated today. Electronically Signed by Ankur Lewis MD 09/01/2019 02:46 P
== END ==
LOC: M SMT 13:40
PROVIDERS: ATTEND Urology
DX: N20.0 Calculus of kidney (principal)

== ENCOUNTER → 2019-10-02 | Outpatient (REF) | payer MEDICARE, OTHER ==
[2019-10-02 14:01] LABS: AMORPHOUS SEDIMENT SMALL (NEGATIVE); APPEARANCE, URINE HAZY (CLEAR); BACTERIA, URINE AUTO 1+ (NEGATIVE); BILIRUBIN, URINE AUTO NEGATIVE (NEGATIVE); BLOOD, URINE BLOOD NEGATIVE (NEGATIVE); CALCIUM OXALATE CRYSTALS LARGE; COLOR, URINE YELLOW (YELLOW); GLUCOSE, URINE (UA) AUTO NEGATIVE (NEGATIVE); KETONE, URINE AUTO NEGATIVE (NEGATIVE); LEUKOCYTE ESTERASE, URINE AUTO NEGATIVE (NEGATIVE); MUCUS, URINE SMALL (NEGATIVE); NITRITE, URINE AUTO NEGATIVE (NEGATIVE); PROTEIN, URINE AUTO NEGATIVE (NEGATIVE); RBC, URINE AUTO 2 /HPF (0-3); SPECIFIC GRAVITY URINE AUTO 1.012 (1.002-1.035); SQUAMOUS EPITHELIAL CELL UR AU 1 /HPF (0-6); UROBILINOGEN, URINE AUTO 0.2 mg/dL (0.0-2.0); WBC, URINE AUTO 2 /HPF (0-3)
== END ==
LOC: M SMT 13:02
PROVIDERS: ATTEND Nurse Practitioner Family
DX: R32 Unspecified urinary incontinence (principal)